=== PATIENT | female | born 1955 | race Caucasian/White ===

== ENCOUNTER → 2020-05-08 | Outpatient (CLI) | payer MEDICARE ==
[~2020-05-08] MED LIST: ACET325T14 PO; PHEN100C PO; SENN8.6T98 PO; flexeril; meloxicam; multivitamins
== END | disposition home or self-care (01) ==
LOC: LAB 13:34
PROVIDERS: ATTEND Psychiatry & Neurology Child & Adolescent Psychiatry
DX: G31.84 Mild cognitive impairment of uncertain or unknown etiology (principal); G40.802 Other epilepsy, not intractable, without status epilepticus; M62.81 Muscle weakness (generalized); Z82.0 Family history of epilepsy and other diseases of the nervous system
CPT/HCPCS: 36415; 80164